=== PATIENT | female | born 1975 | race Caucasian/White ===

== ENCOUNTER 2016-08-27 14:15 | Observation (INO) | payer OTHER ==
[2016-08-27] MEDS ORDERED: Zofran 4 MG/2 ML VIAL IV PRN (16:44)
[2016-08-27] MEDS ORDERED: MORPHINE SULFATE 2 MG INJ IV PRN (16:44)
[2016-08-27 16:56] LABS: BASOPHIL % 0.2 % (0.0-0.4); Granulocytes % 53.7 % (36.0-66.0); Lymphocytes % 36.3 % (24.0-44.0); Mean Cell Volume 96.2 fl (78-100); Mean Corpuscular Hemoglobin 32.3 pg (26-32); Mean Platelet Volume 10.8 fl (6-9.5); Monocytes % 7.8 % (0.0-12.0); Platelet Count 242 K/mm3 (150-450); Red Blood Count 4.43 M/mm3 (4.1-5.4); Red Cell Distribution Width 12.6 % (11.5-14.0); White Blood Count 5.9 K/mm3 (4.0-10.5)
[2016-08-27 17:31] LABS: ALBUMIN 3.6 g/dL (3.4-5.0); ALKALINE PHOSPHATASE 83 U/L (46-116); ANION GAP 13.4 MEQ/L (5-15); BILIRUBIN,TOTAL 0.3 mg/dL (0.2-1.0); BLOOD UREA NITROGEN 11 mg/dL (9-20); CHLORIDE 106 mEq/L (98-107); Carbon Dioxide 27.9 mEq/L (21-32); Glucose 99 MG/DL (70-110); LIPASE 108 U/L (73-393); Potassium 3.4 mEq/L (3.5-5.1); SGOT/AST 17 U/L (15-37); SGPT/ALT 23 U/L (12-78); SODIUM 144 mEq/L (136-145); Total Protein 6.8 gm/dL (6.4-8.2)
[2016-08-27] MEDS: Sodium Chloride 0.9% 1000 ML 1,000 ML IV SCH (18:22)
[2016-08-28] MEDS: Sodium Chloride 0.9% 1000 ML 1,000 ML IV SCH (05:09)
[2016-08-28 05:46] LABS: COMPLETE URINE MICROSCOPIC? NO; Collection Type CLEAN CATCH
--- NOTE | 2016-08-28 08:36 | XRAY ---
Indication: Severe right lower quadrant pain. Multiple contiguous axial images obtained through the abdomen and pelvis without contrast as ordered. Comparison: None Lung bases are clear. Heart is not enlarged. There has been previous gastric bypass surgery. Noncontrasted stomach and bowel loops appear nonobstructed. Mild scattered colonic fecal debris throughout. Normal air-filled appendix. No free fluid/air. A few calcified splenic granulomas and tiny solitary calcified uterine fibroid. Remaining liver, gallbladder, pancreas, spleen, adrenal glands, kidneys, ureters, bladder, uterus, and aorta appear unremarkable for noncontrast exam. Osseous structures intact. Impression: 1. Fecal stasis without obstruction. 2. No acute intra-abdominal/pelvic abnormalities on this noncontrast exam. 3. Incidental tiny calcified uterine fibroid and calcified splenic granulomas. CT DI 23.05
[2016-08-28] MEDS ORDERED: MULTIVITAMIN PO SCH (10:00)
[2016-08-28] MEDS ORDERED: FERROUS SULFATE DRIED 65 MG PO SCH (10:00)
[2016-08-28] MEDS ORDERED: Vitamin B-12 500 MCG PO SCH (10:00)
[2016-08-28] MEDS ORDERED: THERAGRAN MULTIVITAMIN PO SCH (10:00)
[2016-08-28] MEDS ORDERED: FEOSOL 325 MG PO SCH (10:00)
[2016-08-28] MEDS ORDERED: CYANOCOBALAMIN PO SCH (10:00)
[2016-08-28 12:13] VITALS: BP 93/40; PULSE 63; O2SAT 98
--- NOTE | 2016-08-29 07:47 | CONS ---
CONSULT DATE: 08/28/[address] Forde earlier this patient is seen on Dr. Mauricio's call today. HISTORY: The patient is a 40 year-old female came in basically had some right sided abdominal aches and pains recently. She then had CT scan that was read as no acute changes, had calcified uterine fibroid, calcified splenic granuloma, some fecal stasis but no acute intra-abdominal pathology noted. She denies any nausea or vomiting today. She is tolerating liquids without difficulty. She is hungry and wanting to eat regular food. She has had history of bariatric surgery four years ago. She still has her gallbladder. PAST MEDICAL HISTORY: Pertinent for admission assessment. PAST SURGICAL HISTORY: Includes right ovarian cyst and ovary removed before. She had bariatric surgery. She had right axillary and neck area lymph nodes excised in the past. MEDICATIONS: As noted per the MAR. ALLERGIES: NKDA. SOCIAL HISTORY: No alcohol abuse. LAB DATA AND TESTS: Work ups included liver function test normal amylase and lipase were also okay. White blood cell count 5.9, hemoglobin 14.3, PLT 242,000. Lactic acid 0.9. HCG is negative. REVIEW OF SYSTEMS: Ten systems reviewed negative or noncontributory as noted above and per admission assessment. No chest pain or palpitations. She is basically having 1 out of 10 discomfort now much improved from admission. She is tolerating liquid diet without difficulty and wanting to eat regular food. She is much better and wants to go home at this time. PHYSICAL EXAMINATION: GENERAL: No acute distress. HEENT: Sclera nonicteric. NECK: No JVD. CHEST: Equal excursion, nonlabored breathing. CVS: Regular rate and rhythm. ABDOMEN: Soft. No peritoneal signs. There is minimal tenderness right abdomen much improved from her significant pain when she came in. EXTREMITIES: No significant edema. NEURO: Alert, moving extremities grossly symmetrically. No gross motor deficits noted. IMPRESSION: Right side abdominal pain unclear etiology. It could be biliary colic, gastritis, enteritis or other etiology. She is much improved. Ulcer could be in the differential as well as pain control for that. Otherwise much improved. She is tolerating p.o. Her pain is only 1 out of 10 and very minimal. The patient wants to eat more and go home. I do not feel she needs any emergent surgical intervention at this time. Apparently according to the nursing staff as her CT is negative she does have a HIDA scan that was scheduled as an outpatient. If that is negative, might need to consider either ultrasound to rule out noncalcified gallstones otherwise consider upper and lower endoscopy for further evaluation for further work up. Either way no emergent surgery necessary. She has an outpatient HIDA scan scheduled. I feel she can be released. She is tolerating p.o. and her pain has virtually resolved. Follow up in the office either with myself or Dr. Forde once the results of other studies come in.
--- NOTE | 2016-08-29 10:40 | DS ---
DISCHARGE DIAGNOSES: 1) ABDOMINAL PAIN RIGHT UPPER QUADRANT, IMPROVED. 2) ABDOMINAL PAIN RIGHT LOWER QUADRANT, RESOLVED. 3) HISTORY OF GASTRIC BYPASS. HOSPITAL COURSE: Sofiya Galan is a 40 year-old woman with past medical history of obstructive sleep apnea, status post gastric bypass in 2012. She was seen by Dr. Gonzalez for office visit yesterday and had complained of right upper abdominal pain and right lower abdominal pain. Please refer to his history and physical for details. She was admitted from office for further work up and management. Lab work up showed negative UA. CMP was essentially unremarkable except potassium of 3.4, lipase within normal limits. CBC was unremarkable. Lactic acid within normal limits. Serum HCG was negative. She was placed on treatment with IV fluids, PRN analgesics, PRN antiemetic. She underwent CT scan of abdomen and pelvis which showed fecal stasis without obstruction, no acute intra-abdominal/pelvic abnormality, incidental tiny calcified uterine fibroid and calcified splenic granulomas. After admission her right lower quadrant pain had resolved and also right upper quadrant pain improved. Earlier today the patient's nurse contacted me regarding starting the patient on diet since her pain had resolved. The patient was placed on clear liquid diet which she tolerated well. At the time of this evaluation she is alert, awake, and comfortable. Denies any right lower abdominal pain. Occasionally has minimal right upper quadrant pain however that has improved to a great extent from yesterday. Denies any nausea or vomiting. Denies new complaints. She has been able to ambulate overall feeling well and is wishing to go home. Appears comfortable. PHYSICAL EXAMINATION: VITAL SIGNS: Blood pressure 93/40, heart rate 63, respiratory rate 18, temperature 98.6F. Oxygen saturation 98%. HEENT: No pallor or icterus is noted. NECK: No JVD is present. CVS: S1, S2 present. RESPIRATORY: Breath sounds are bilaterally diminished and clear to auscultation. ABDOMEN: Obese, soft, minimal right upper quadrant tenderness is present. No guarding or rigidity present. NEURO: She is alert, oriented x3. EXTREMITIES: No edema on bilateral lower extremities. LABORATORY DATA AND TESTS: Labs were noted. CT scan of abdomen and pelvis as noted above. Medications were reviewed. ASSESSMENT: As outlined in discharge diagnoses. PLAN: The patient was admitted with right upper and right lower quadrant pain. She underwent work up and treatment as noted. She has improved clinically, remains hemodynamically stable. Her symptoms of right lower quadrant pain have resolved and right upper quadrant pain has improved to a great extent. She is overall feeling well, tolerating clear liquid diet so far. She is wishing to go home. Surgical consultation has been requested and is awaited. In view of the patient's symptoms, I have requested the patient to have HIDA scan that cannot be performed today and will be only available tomorrow morning. The patient was advised to follow up with that as outpatient as scheduled. I advised the patient to drink ample p.o. fluids and eat soft bland diet. I advised her to avoid any greasy foods. Compliant with diet and medications was stressed. I have advised her to return to the [facility] if any new signs and symptoms or reappearance of previous signs and symptoms are noted. Also the patient has been advised to follow up in our office in one week. The patient's clinical condition, work-up results and plan of management including plan after discharge as noted, were discussed with the patient. She seems to be in understanding and agreement. Please refer to discharge medication list from 08/28/2016 for details of medications on discharge.
== END 2016-08-28 16:25 | disposition home or self-care (01) ==
LOC: MED SURG 14:15
PROVIDERS: ADMIT General Practice; ATTEND General Practice
DX: R10.11 Right upper quadrant pain (principal); R10.31 Right lower quadrant pain; Z98.84 Bariatric surgery status
CPT/HCPCS: 36415; 74176; 80053; 81002; 82150; 83605; 83690; 84703; 85025; G0378; J2270; J2405

== ENCOUNTER 2016-08-31 17:58 | Observation (INO) | payer OTHER ==
[~2016-08-31 17:58] MED LIST: DILAUDID 2 MG INJECTION IV ONE; DIPRIVAN 200 MG/20 ML IV ONE; Decadron 4 MG INJ IV ONE; Quelicin Fliptop 200 MG/10 ML IJ ONE; SUBLIMAZE 100 MCG/2 ML IV ONE; TORAdol 30 mg Injection IJ ONE; Zemuron 100 MG/10 ML IJ ONE; Zofran 4 MG/2 ML VIAL IV ONE
--- NOTE | 2016-08-31 18:22 | ERPHSYRPT ---
- History of Present Illness Time Seen by Provider: 08/31/16 18:15 Historian: patient Exam Limitations: no limitations Physician History: The patient is a 40-year-old female with her complaining of right upper quadrant abdominal pain that radiates through to her back that began earlier this morning. She has had similar abdominal pain recently. She has been evaluated for this and it has been determined that her gallbladder is enlarged with only about 19% efficiency by HIDA scan. She was admitted 4 days ago for the same pain. She is scheduled to have her gallbladder removed in 2 weeks. Her local doctor told her to be seen in the emergency room if the pain came back this weekend. Her past medical history is significant for a bariatric surgery. Timing/Duration: today Activities at Onset: none Quality: aching Abdominal Pain Onset Location: RUQ Pain Radiation: back Severity of Pain-Max: moderate Severity of Pain-Current: moderate Modifying Factors: Improves With: nothing Associated Symptoms: nausea Previous symptoms: same symptoms as today Allergies/Adverse Reactions: No Known Drug Allergies Allergy (Verified 08/31/16 18:13) Home Medications: Cyanocobalamin (Vitamin B-12) [B-12] 15,000 mcg PO DAILY 08/27/16 [History] Ferrous Sulfate, Dried [Iron] 65 mg PO DAILY 08/27/16 [History] Multivitamin [Flintstones] 3 each PO DAILY 08/27/16 [History] - Review of Systems Constitutional: No Fever, No Chills Eyes: No Symptoms Ears, Nose, & Throat: No Symptoms Respiratory: No Cough, No Dyspnea Cardiac: No Chest Pain, No Edema, No Syncope Abdominal/Gastrointestinal: Abdominal Pain, Nausea Genitourinary Symptoms: No Dysuria Musculoskeletal: No Back Pain, No Neck Pain Skin: No Rash Neurological: No Dizziness, No Focal Weakness, No Sensory Changes Psychological: No Symptoms Endocrine: No Symptoms Hematologic/Lymphatic: No Symptoms Immunological/Allergic: No Symptoms All Other Systems: Reviewed and Negative - Past Medical History Pertinent Past Medical History: Yes Neurological History: No Pertinent History ENT History: No Pertinent History Cardiac History: Other Respiratory History: No Pertinent History Endocrine Medical History: Other Musculoskeletal History: No Pertinent History GI Medical History: Other History: No Pertinent History Psycho-Social History: No Pertinent History Female Reproductive Disorders: No Pertinent History Other Medical History: prior to bariatric surgery pt was diabetic type II. no longer deals with any diabetic signs or symptoms. HX: mitral valve prolapse, bariatric surgery - Past Surgical History Past Surgical History: Yes Neuro Surgical History: No Pertinent History Cardiac: Cardiac Catheterization, Other Respiratory: No Pertinent History Gastrointestinal: Other Genitourinary: No Pertinent History Musculoskeletal: No Pertinent History Female Surgical History: Other Other Surgical History: bariatric surgery, heart cath for mitral valve prolaspe , ovarian cyst surgery,lymphnode removed from left side of the neck - Social History Smoking Status: Never smoker Exposure to second hand smoke: No Drug Use: none - Nursing Vital Signs Nursing Vital Signs: Initial Vital Signs Temperature 98.5 F Temperature Source Oral Pulse Rate 56 Respiratory Rate 16 Blood Pressure [Right Arm] 116/56 Pain Intensity 2 - Physical Exam General Appearance: mild distress Eye Exam: PERRL/EOMI, eyes nml inspection Ears, Nose, Throat Exam: normal ENT inspection, pharynx normal, moist mucous membranes Neck Exam: normal inspection, non-tender, supple, full range of motion Respiratory Exam: normal breath sounds, lungs clear, No respiratory distress Cardiovascular Exam: regular rate/rhythm, normal heart sounds Gastrointestinal/Abdomen Exam: tenderness (RUQ), guarding Pelvic Exam: not done Rectal Exam: not done Back Exam: normal inspection, normal range of motion, No CVA tenderness, No vertebral tenderness Extremity Exam: normal inspection, normal range of motion, pelvis stable Neurologic Exam: alert, oriented x 3, cooperative, normal mood/affect, nml cerebellar function, sensation nml, No motor deficits Skin Exam: normal color, warm, dry SpO2 Interpretation: normal - CT Exams Abdomen/Pelvis CT Interpretation: Tele-radiologist Report, Normal Appendix, No appendicitis, Other (New 3.5 cm R ovarian cyst. Tiny cul de sac fluid. Nl appy. Comp CT ) Ordered Tests: Active Orders 24 hr Category Date Time Status IV Insertion STAT Care 08/31/16 18:19 Active ABDOMEN AND PELVIS W/0 CONTRAS [CT] Stat Exams 08/31/16 18:26 Taken CBC W DIFF Stat Lab 08/31/16 18:15 Completed CMP Stat Lab 08/31/16 18:15 Completed HCG QUALITATIVE,SERUM Stat Lab 08/31/16 18:15 Completed LIPASE Stat Lab 08/31/16 18:15 Completed Lactic Acid Urgent Lab 08/31/16 18:55 Completed UA W/ MICROSCOPIC Stat Lab 08/31/16 18:50 Completed Medication Summary Discontinued Medications Generic Name Dose Route Start Last Admin Trade Name Jc PRN Reason Stop Dose Admin Hydromorphone HCl 0.5 mg 08/31/16 18:25 08/31/16 18:35 Hydromorphone 1 Mg/Ml Ampule IV 08/31/16 18:26 0.5 mg STAT ONE Administration Hydromorphone HCl Confirm 08/31/16 18:32 Hydromorphone 1 Mg/Ml Ampule Administered 08/31/16 18:33 Dose 1 mg .ROUTE .STK-MED ONE Sodium Chloride 500 mls @ 999 mls/hr 08/31/16 18:25 08/31/16 18:35 Sodium Chloride 0.9% 1000 Ml IV 08/31/16 18:55 999 mls/hr .Q31M STA Administration Sodium Chloride Confirm 08/31/16 18:32 Sodium Chloride 0.9% 1000 Ml Administered 08/31/16 18:33 Dose 1,000 mls @ ud .ROUTE .STK-MED ONE Ondansetron HCl 4 mg 08/31/16 18:25 08/31/16 18:36 Zofran 4 Mg/2 Ml Vial IV 08/31/16 18:26 4 mg STAT ONE Administration Ondansetron HCl Confirm 08/31/16 18:32 Zofran 4 Mg/2 Ml Vial Administered 08/31/16 18:33 Dose 4 mg .ROUTE .STK-MED ONE Lab/Rad Data: Laboratory Result Diagrams 08/31/16 18:15 08/31/16 18:15 Laboratory Results 08/31/16 08/31/16 08/31/16 Range/Units 18:55 18:50 18:15 WBC (4.0-10.5) K/mm3 RBC (4.1-5.4) M/mm3 Hgb (12.0-16.0) gm/dl Hct (35-47) % MCV (78-100) fl MCH (26-32) pg MCHC (32-36) g/dl RDW (11.5-14.0) % Plt Count (150-450) K/mm3 MPV (6-9.5) fl Gran % (36.0-66.0) % Lymphocytes % (24.0-44.0) % Monocytes % (0.0-12.0) % Eosinophils % (0.00-5.0) % Basophils % (0.0-0.4) % Basophils # (0-0.4) Sodium (136-145) mEq/L Potassium (3.5-5.1) mEq/L Chloride (98-107) mEq/L Carbon Dioxide (21-32) mEq/L Anion Gap (5-15) MEQ/L BUN (9-20) mg/dL Creatinine (0.55-1.30) mg/dl Estimated GFR ML/MIN Glucose (70-110) MG/DL Lactic Acid 1.5 (0.4-2.0) Calcium (8.5-10.1) mg/dL Total Bilirubin (0.2-1.0) mg/dL AST (15-37) U/L ALT (12-78) U/L Alkaline Phosphatase (46-116) U/L Serum Total Protein (6.4-8.2) gm/dL Albumin (3.4-5.0) g/dL Lipase (73-393) U/L Serum , Qual NEGATIVE (Negative) Ur Collection Type CLEAN CATCH Urine Color YELLOW (YELLOW) Urine Appearance SLIGHTLY CLOUDY (CLEAR) Urine pH 5.0 (5-6) Ur Specific [place] 1.025 (1.005-1.025) Urine Protein NEGATIVE (Negative) Urine Glucose (UA) NEGATIVE (NEGATIVE) mg/dL Urine Ketones TRACE (NEGATIVE) Urine Nitrite NEGATIVE (NEGATIVE) Urine Bilirubin NEGATIVE (NEGATIVE) Urine Urobilinogen 0.2 (0-1) mg/dL Urine WBC (Auto) TRACE (NEGATIVE) Urine RBC (Auto) NEGATIVE (0-5) Claude/ul Urine Microscopic WBC 0-2 (0-5) /HPF Ur Epithelial Cells FEW (FEW) /HPF Urine Bacteria RARE (NEGATIVE) /HPF Specimen Received 08/31/16:1855 08/31/16 08/31/16 Range/Units 18:15 18:15 WBC 7.7 (4.0-10.5) K/mm3 RBC 4.43 (4.1-5.4) M/mm3 Hgb 14.3 (12.0-16.0) gm/dl Hct 42.4 (35-47) % MCV 95.7 (78-100) fl MCH 32.3 H (26-32) pg MCHC 33.7 (32-36) g/dl RDW 12.6 (11.5-14.0) % Plt Count 238 (150-450) K/mm3 MPV 10.6 H (6-9.5) fl Gran % 54.4 (36.0-66.0) % Lymphocytes % 33.6 (24.0-44.0) % Monocytes % 9.1 (0.0-12.0) % Eosinophils % 2.6 (0.00-5.0) % Basophils % 0.3 (0.0-0.4) % Basophils # 0.02 (0-0.4) Sodium 145 (136-145) mEq/L Potassium 3.5 (3.5-5.1) mEq/L Chloride 111 H (98-107) mEq/L Carbon Dioxide 25.3 (21-32) mEq/L Anion Gap 12.5 (5-15) MEQ/L BUN 12 (9-20) mg/dL Creatinine 0.88 (0.55-1.30) mg/dl Estimated GFR > 60 ML/MIN Glucose 89 (70-110) MG/DL Lactic Acid (0.4-2.0) Calcium 8.0 L (8.5-10.1) mg/dL Total Bilirubin 0.2 (0.2-1.0) mg/dL AST 14 L (15-37) U/L ALT 15 (12-78) U/L Alkaline Phosphatase 90 (46-116) U/L Serum Total Protein 6.6 (6.4-8.2) gm/dL Albumin 3.6 (3.4-5.0) g/dL Lipase 133 (73-393) U/L Serum , Qual (Negative) Ur Collection Type Urine Color (YELLOW) Urine Appearance (CLEAR) Urine pH (5-6) Ur Specific [place] (1.005-1.025) Urine Protein (Negative) Urine Glucose (UA) (NEGATIVE) mg/dL Urine Ketones (NEGATIVE) Urine Nitrite (NEGATIVE) Urine Bilirubin (NEGATIVE) Urine Urobilinogen (0-1) mg/dL Urine WBC (Auto) (NEGATIVE) Urine RBC (Auto) (0-5) Claude/ul Urine Microscopic WBC (0-5) /HPF Ur Epithelial Cells (FEW) /HPF Urine Bacteria (NEGATIVE) /HPF Specimen Received - Progress Progress: improved, pain not gone completely Progress Note: 08/31/16 20:05 Discussed pt at 19:[address] Gonzalez who accepts pt as observation overnight. Discussed pt at 20:[address] Vicky Forde who will see pt in the morning. Discussed with : Carlos Counseled pt/family regarding: lab results, diagnosis, need for follow-up, rad results - Departure Time of Disposition: 19:43 Departure Disposition: Observation (per Dr Gonzalez) Clinical Impression: Abdominal pain, Ovarian cyst Condition: Stable Critical Care Time: No
[2016-08-31] MEDS ORDERED: Zofran 4 MG/2 ML VIAL IV ONE (18:25)
[2016-08-31] MEDS ORDERED: Hydromorphone 1 mg/ml Ampule IV ONE (18:25)
[2016-08-31] MEDS ORDERED: Zofran 4 MG/2 ML VIAL ONE (18:32)
[2016-08-31] MEDS ORDERED: Hydromorphone 1 mg/ml Ampule ONE (18:32)
[2016-08-31] MEDS ORDERED: Sodium Chloride 0.9% 1000 ML 1,000 ML ONE (18:32)
[2016-08-31 18:33] LABS: BASOPHIL % 0.3 % (0.0-0.4); Eosinophil % 2.6 % (0.00-5.0); Granulocytes % 54.4 % (36.0-66.0); Lymphocytes % 33.6 % (24.0-44.0); Mean Cell Volume 95.7 fl (78-100); Mean Corpuscular Hemoglobin 32.3 pg (26-32); Mean Platelet Volume 10.6 fl (6-9.5); Monocytes % 9.1 % (0.0-12.0); Platelet Count 238 K/mm3 (150-450); Red Blood Count 4.43 M/mm3 (4.1-5.4); Red Cell Distribution Width 12.6 % (11.5-14.0); White Blood Count 7.7 K/mm3 (4.0-10.5)
[2016-08-31 18:51] LABS: ALBUMIN 3.6 g/dL (3.4-5.0); ALKALINE PHOSPHATASE 90 U/L (46-116); ANION GAP 12.5 MEQ/L (5-15); BILIRUBIN,TOTAL 0.2 mg/dL (0.2-1.0); BLOOD UREA NITROGEN 12 mg/dL (9-20); CHLORIDE 111 mEq/L (98-107); Carbon Dioxide 25.3 mEq/L (21-32); Glucose 89 MG/DL (70-110); LIPASE 133 U/L (73-393); Potassium 3.5 mEq/L (3.5-5.1); SGOT/AST 14 U/L (15-37); SGPT/ALT 15 U/L (12-78); SODIUM 145 mEq/L (136-145); Total Protein 6.6 gm/dL (6.4-8.2)
[2016-08-31 19:09] LABS: Collection Type CLEAN CATCH
[2016-08-31 19:11] LABS: Bacteria RARE /HPF (NEGATIVE); COMPLETE URINE MICROSCOPIC? YES; Epithelial Cells FEW /HPF (FEW); WBC 0-2 /HPF (0-5)
[2016-08-31] MEDS ORDERED: TYLENOL 325 MG PO PRN (20:46)
[2016-08-31] MEDS: Sodium Chloride 0.9% 1000 ML 1,000 ML IV SCH (21:24)
[2016-08-31] MEDS: DILAUDID 2 MG INJECTION IV PRN (21:31)
--- NOTE | 2016-08-31 22:27 | XRAY ---
Indication: Right lower quadrant pain. Multiple contiguous axial images obtained through the abdomen and pelvis without contrast as ordered. Comparison: August 27, 2016. Lung bases remain clear. Heart is not enlarged. Again noted previous gastric bypass surgery. Noncontrasted stomach and bowel loops appear nonobstructed. Again normal appendix. New 3.5 cm right ovary cyst and tiny cul-de-sac fluid. Stable calcified splenic granulomas and solitary calcified uterine fibroid. Remaining liver, gallbladder, pancreas, spleen, adrenal glands, kidneys, ureters, bladder, and aorta appear unremarkable for noncontrast exam. Impression: New 3.5 cm right ovary cyst and cul-de-sac fluid. Stable calcified splenic granulomas and tiny calcified uterine fibroid. CTDI 23.39
[2016-09-01] MEDS: DILAUDID 2 MG INJECTION IV PRN ×4 (02:19→22:09)
[2016-09-01 05:52] LABS: BASOPHIL % 0.4 % (0.0-0.4); Eosinophil % 2.9 % (0.00-5.0); Granulocytes % 45.8 % (36.0-66.0); Lymphocytes % 43.1 % (24.0-44.0); Mean Cell Volume 97.9 fl (78-100); Mean Platelet Volume 10.6 fl (6-9.5); Monocytes % 7.8 % (0.0-12.0); Platelet Count 186 K/mm3 (150-450); Red Blood Count 3.77 M/mm3 (4.1-5.4); Red Cell Distribution Width 12.6 % (11.5-14.0); White Blood Count 5.6 K/mm3 (4.0-10.5)
[2016-09-01 06:03] LABS: Mean Corpuscular Hemoglobin 32.3 pg (26-32)
[2016-09-01 06:14] LABS: ANION GAP 11.9 MEQ/L (5-15); BLOOD UREA NITROGEN 9 mg/dL (9-20); CHLORIDE 115 mEq/L (98-107); Carbon Dioxide 24.4 mEq/L (21-32); Glucose 89 MG/DL (70-110); Potassium 4.4 mEq/L (3.5-5.1); SODIUM 147 mEq/L (136-145)
[2016-09-01] MEDS: Zofran 4 MG/2 ML VIAL IV PRN ×2 (06:16→16:31)
[2016-09-01] MEDS: Sodium Chloride 0.9% 1000 ML 1,000 ML IV SCH (08:01)
--- NOTE | 2016-09-01 08:20 | PCM.HP ---
History of Present Illness - Chief Complaint Chief Complaint: cholecystitis History of Present Illness: The patient is a 40-year-old female with her complaining of right upper quadrant abdominal pain that radiates through to her back that began earlier this morning. She has had similar abdominal pain recently. She has been evaluated for this and it has been determined that her gallbladder is enlarged with only about 19% efficiency by HIDA scan. She was admitted 4 days ago for the same pain. She is scheduled to have her gallbladder removed in 2 weeks. Her local doctor told her to be seen in the emergency room if the pain came back this weekend. Her past medical history is significant for a bariatric surgery. - Review of Systems Constitutional: No Fever, No Chills Eyes: No Symptoms Ears, Nose, & Throat: No Symptoms Respiratory: No Cough, No Short Of Breath Cardiac: No Chest Pain, No Edema, No Syncope Abdominal/Gastrointestinal: Abdominal Pain (right upper quadrant), No Nausea, No Vomiting, No Diarrhea Genitourinary Symptoms: No Dysuria Musculoskeletal: No Back Pain, No Neck Pain Skin: No Rash Neurological: No Dizziness, No Focal Weakness, No Sensory Changes Psychological: No Symptoms Endocrine: No Symptoms Hematologic/Lymphatic: No Symptoms Immunological/Allergic: No Symptoms Medications & Allergies Home Medications: Home Medication List Cyanocobalamin (Vitamin B-12) [B-12] 15,000 mcg PO DAILY 08/27/16 [History Confirmed 08/31/16] Ferrous Sulfate, Dried [Iron] 65 mg PO DAILY 08/27/16 [History Confirmed ] Multivitamin [Flintstones] 3 each PO DAILY 08/27/16 [History Confirmed 08/31/16] Allergies/Adverse Reactions: Allergies Allergy/AdvReac Type Severity Reaction Status Date / Time No Known Drug Allergies Allergy Verified 08/31/16 18:13 - Past Medical History Past Medical History: Yes Neurological History: No Pertinent History ENT History: No Pertinent History Cardiac History: Other Respiratory History: No Pertinent History Endocrine Medical History: Other Musculoskelatal History: No Pertinent History GI Medical History: Other History: No Pertinent History Pyscho-Social History: No Pertinent History Reproductive Disorders: No Pertinent History Comment: prior to bariatric surgery pt was diabetic type II. no longer deals with any diabetic signs or symptoms. HX: mitral valve prolapse, bariatric surgery - Female History Hx Last Menstrual Period: 08/14/16 Are you now?: No - Past Surgical History Past Surgical History: Yes Neuro Surgical History: No Pertinent History Cardiac History: Cardiac Catheterization, Other Respiratory Surgery: No Pertinent History GI Surgical History: Other Genitourinary Surgical Hx: No Pertinent History Musculskeletal Surgical Hx: No Pertinent History Female Surgical History: Other Other Surgical History: bariatric surgery, heart cath for mitral valve prolaspe , ovarian cyst surgery,lymphnode removed from left side of the neck, 5 lymph nodes removed from Right arm pit - Social History Smoking Status: Never smoker Exposure to second hand smoke: No Alcohol: None Drug Use: none - Physical Exam Vital Signs: Vital Signs - 24 hr Temp Pulse Resp BP Pulse Ox 09/01/16 08:00 98.5 F 48 L 17 89/51 94 L 09/01/16 04:00 98.0 F 52 L 15 99/58 96 09/01/16 00:00 98.2 F 46 L 16 92/48 97 08/31/16 22:50 98.3 F 55 L 16 114/53 100 08/31/16 20:03 64 16 110/54 99 08/31/16 19:22 56 L 16 116/56 99 08/31/16 18:01 98.5 F 63 16 116/54 100 General Appearance: no apparent distress, alert Neurologic Exam: alert, oriented x 3, cooperative, normal mood/affect, nml cerebellar function, nml station & gait, sensation nml, No motor deficits Eye Exam: PERRL/EOMI, eyes nml inspection Ears, Nose, Throat Exam: normal ENT inspection, TMs normal, pharynx normal, moist mucous membranes Neck Exam: normal inspection, non-tender, supple, full range of motion Respiratory Exam: normal breath sounds, lungs clear, No respiratory distress Cardiovascular Exam: regular rate/rhythm, normal heart sounds, normal peripheral pulses Gastrointestinal/Abdomen Exam: soft, normal bowel sounds, tenderness (right upper quadrant), No distention, No mass, No guarding Back Exam: normal inspection, normal range of motion, No CVA tenderness, No vertebral tenderness Extremity Exam: normal inspection, normal range of motion, pelvis stable Skin Exam: normal color, warm, dry, No rash Lymphatic Exam: No adenopathy Results - Labs Lab/Micro Results: Lab Results-Last 24 Hours 09/01/16 09/01/16 Range/Units 05:25 05:30 WBC 5.6 (4.0-10.5) K/mm3 RBC 3.77 L (4.1-5.4) M/mm3 Hgb 12.2 (12.0-16.0) gm/dl Hct 36.9 (35-47) % MCV 97.9 (78-100) fl MCH 32.3 H (26-32) pg MCHC 33.1 (32-36) g/dl RDW 12.6 (11.5-14.0) % Plt Count 186 (150-450) K/mm3 MPV 10.6 H (6-9.5) fl Gran % 45.8 (36.0-66.0) % Lymphocytes % 43.1 (24.0-44.0) % Monocytes % 7.8 (0.0-12.0) % Eosinophils % 2.9 (0.00-5.0) % Basophils % 0.4 (0.0-0.4) % Basophils # 0.02 (0-0.4) Sodium 147 H (136-145) mEq/L Potassium 4.4 (3.5-5.1) mEq/L Chloride 115 H (98-107) mEq/L Carbon Dioxide 24.4 (21-32) mEq/L Anion Gap 11.9 (5-15) MEQ/L BUN 9 (9-20) mg/dL Creatinine 0.79 (0.55-1.30) mg/dl Estimated GFR > 60 ML/MIN Glucose 89 (70-110) MG/DL Calcium 7.6 L (8.5-10.1) mg/dL Assessment/Plan (1) Acalculous cholecystitis Current Visit: Yes Status: Acute Assessment & Plan: admit patient . surgery on consult. patient is stable for general anesthesia Code(s): K81.9 - CHOLECYSTITIS, UNSPECIFIED (2) Abdominal pain Current Visit: Yes Status: Acute Qualifiers: Abdominal location: right upper quadrant Qualified Code(s): R10.11 - Right upper quadrant pain Code(s): R10.9 - UNSPECIFIED ABDOMINAL PAIN (3) Ovarian cyst Current Visit: Yes Status: Acute Qualifiers: Laterality: right Qualified Code(s): N83.201 - Unspecified ovarian cyst, right side Code(s): N83.209 - UNSPECIFIED OVARIAN CYST, UNSPECIFIED SIDE
[2016-09-01] MEDS ORDERED: MEFOXIN 2 GM PREMIX** 50 ML IV SCH (10:00)
[2016-09-01] MEDS ORDERED: Lactated Ringers 1,000 ML IV SCH (10:00)
[2016-09-01] MEDS ORDERED: CYANOCOBALAMIN PO SCH (10:00)
[2016-09-01] MEDS ORDERED: FERROUS SULFATE DRIED 65 MG PO SCH (10:00)
[2016-09-01] MEDS ORDERED: MULTIVITAMIN PO SCH (10:00)
[2016-09-01] MEDS: THERAGRAN MULTIVITAMIN PO SCH (10:23)
[2016-09-01] MEDS: FEOSOL 325 MG PO SCH (10:23)
[2016-09-01] MEDS ORDERED: MEDICATION INTERVENTION MC PRN (10:24)
[2016-09-01] MEDS ORDERED: Pepcid 20 MG VIAL IV SCH (12:00)
[2016-09-01] MEDS ORDERED: BICITRA 30 ML CUP PO SCH (12:00)
[2016-09-01] MEDS ORDERED: Sensorcaine 0.25% 10 ML ONE (12:46)
[2016-09-01] MEDS ORDERED: Lactated Ringers 1,000 ML IV ONE (12:47)
[2016-09-01] MEDS ORDERED: DILAUDID 2 MG INJECTION ONE ×2 (15:02→22:01)
[2016-09-01] MEDS ORDERED: MORPHINE SULFATE 2 MG INJ IV PRN (15:43)
[2016-09-01] MEDS ORDERED: MORPHINE SULFATE 4 MG INJ IV PRN (15:44)
[2016-09-01] MEDS ORDERED: FEVERALL 650 MG RC PRN (15:45)
[2016-09-01] MEDS: Dextrose 5% -0.45 NaCl 1000 ML 1,000 ML IV SCH (16:15)
[2016-09-01] MEDS: MEFOXIN 1 Gm/ D5W 50 Ml** 50 ML IV SCH ×2 (17:51→23:55)
[2016-09-01] MEDS ORDERED: Phenergan 25 MG INJ IV PRN (18:01)
[2016-09-02] MEDS ORDERED: DILAUDID 2 MG INJECTION ONE ×2 (02:16→10:00)
[2016-09-02] MEDS: DILAUDID 2 MG INJECTION IV PRN ×2 (02:21→10:01)
[2016-09-02 05:38] LABS: Mean Cell Volume 97.3 fl (78-100); Mean Corpuscular Hemoglobin 32.4 pg (26-32); Mean Platelet Volume 10.4 fl (6-9.5); Platelet Count 217 K/mm3 (150-450); Red Blood Count 4.04 M/mm3 (4.1-5.4); Red Cell Distribution Width 12.4 % (11.5-14.0); White Blood Count 10.3 K/mm3 (4.0-10.5)
[2016-09-02] MEDS: MEFOXIN 1 Gm/ D5W 50 Ml** 50 ML IV SCH ×2 (05:54→11:28)
[2016-09-02] MEDS ORDERED: NORCO 5/325 MG PO PRN (06:00)
[2016-09-02] MEDS: Dextrose 5% -0.45 NaCl 1000 ML 1,000 ML IV SCH (06:22)
--- NOTE | 2016-09-02 08:39 | OP ---
SURGERY DATE: 09/01/16 SURGERY TIME: 1344 PREOPERATIVE DIAGNOSIS: 1. GALLBLADDER DYSKINESIA. 2. POSSIBLE OVARIAN CYST. POSTOPERATIVE DIAGNOSIS: 1. GALLBLADDER DYSKINESIA 2. NORMAL PELVISCOPY. PROCEDURE: 1. Laparoscopic cholecystectomy. 2. Pelviscopy. SURGEON: Charles Forde M.D. ANESTHESIA: General endotracheal tube. COMPLICATIONS: None. CONDITION: Stable. INDICATION: She is requiring removal of her gallbladder and evaluation of her pelvis. OPERATIVE PROCEDURE: She was taken to surgery. General anesthetic. Routine prep and drape. She had 1 previous procedure. The fascia was elevated upwards. Care and patience was taken entering with the Veress needle. Deliberately inserted. Opened to a pressure of -1. Insufflated to a pressure of 14. #5 trocar introduced. There was just a touch of serosanguinous fluid in the left gutter. Right gutter just a drip in the midline. A right lower quadrant port was placed first. Trendelenburg position. The uterus was normal. The tubes were normal. The ovaries were grossly normal. There was ovulation and normal functional cyst, but there was no large cyst and there was nothing that needed any opening, biopsy, or any attention at this time. The cul-de-sac was satisfactory. There was no endometriosis. The gallbladder was very distended and at the fundus, it was 80% intrahepatic. Three additional ports. Repositioning of the table. Attention headed upwards. The liver was normal. Cystic duct defined. Cystic artery defined. Both structures triply Ligaclipped and transected. Clips totally cross wall approximated. Gallbladder rolled out of gallbladder fossa. Gallbladder delivered through the umbilical port with minimal widening. The umbilical fascia was closed deliberately with the hole closure device. On reinspection, the abdomen was dry. CO2 was exsufflated. Skin closed with 4-0 Vicryl and Steri-strips. Patient tolerated the procedure satisfactory.
[2016-09-02] MEDS: FEOSOL 325 MG PO SCH (09:26)
[2016-09-02] MEDS: THERAGRAN MULTIVITAMIN PO SCH (09:27)
[2016-09-02] MEDS ORDERED: ENOXAPARIN SODIUM SQ SCH (10:00)
[2016-09-02 11:24] VITALS: BP 89/47; PULSE 52; O2SAT 99
--- NOTE | 2016-09-02 12:43 | PCM.DS ---
Discharge Summary Date of Admission: 08/31/16 20:27 Admitting Physician: EVARISTO LAZARO Primary Care Provider: TITO GRIFFITH Allergies Allergies No Known Drug Allergies Allergy (Verified 08/31/16 18:13) Hospital Summary - Hospital Course Hospital Course: Chief Complaint Diagnosis cholecystitis Allergies Allergy/AdvReac Type Severity Reaction Status Date / Time No Known Drug Allergies Allergy Verified 08/31/16 18:13 Vital Signs (Last 24 hours) Temp Pulse Resp BP Pulse Ox 09/02/16 11:00 99.2 F 52 L 18 89/47 99 09/02/16 08:00 18 09/02/16 07:20 98.6 F 47 L 18 89/44 100 09/02/16 07:04 98 09/02/16 05:00 98.1 F 50 L 16 91/49 98 09/02/16 00:49 98.1 F 44 L 16 106/55 98 09/01/16 21:22 54 L 18 96 09/01/16 19:15 98.2 F 58 L 16 120/56 96 09/01/16 18:15 97.9 F 53 L 16 118/65 100 09/01/16 17:15 98.6 F 54 L 18 110/58 96 09/01/16 16:43 98.6 F 52 L 18 121/57 96 09/01/16 16:13 98.7 F 55 L 18 118/58 95 09/01/16 15:54 97.7 F 61 20 127/58 100 09/01/16 15:39 98.3 F 64 18 132/66 97 Current Medications Generic Name Dose Route Start Last Admin Trade Name Freq PRN Reason Stop Dose Admin Acetaminophen 650 mg 08/31/16 20:46 Tylenol 325 Mg PO 09/30/16 20:45 Q4H PRN PRN PAIN AND/OR FEVER Acetaminophen 650 mg 09/01/16 15:45 Feverall 650 Mg RC 10/01/16 15:44 Q4H/PRN PRN TEMP >100 Acetaminophen/Hydrocodone Bitart 1 tab 09/02/16 06:00 [place] 5/325 Mg PO 09/07/16 05:59 Q4H PRN PRN PAIN Bisacodyl 5 mg 09/02/16 12:45 09/02/16 12:39 Dulcolax 5 Mg PO 09/02/16 12:46 5 mg NOW ONE Administration Enoxaparin Sodium 40 mg 09/02/16 10:00 09/02/16 09:26 Enoxaparin Sodium SQ 10/02/16 09:59 40 mg DAILY DEONTE Administration Ferrous Sulfate 325 mg 09/01/16 10:00 09/02/16 09:26 Feosol 325 Mg PO 10/01/16 09:59 325 mg DAILY DEONTE Administration Hydromorphone HCl 0.5 mg 08/31/16 20:46 09/02/16 10:01 Dilaudid 2 Mg Injection IV 09/05/16 20:45 0.5 mg Q4H PRN PRN Administration PAIN Dextrose/Sodium Chloride 1,000 mls @ 75 mls/hr 09/01/16 15:45 09/02/16 06:22 Dextrose 5% -0.45 Nacl 1000 Ml IV 10/01/16 15:44 75 mls/hr .[id number] DEONTE Administration Morphine Sulfate 0 mg 09/01/16 15:43 Morphine Sulfate 2 Mg Inj IV 09/06/16 15:42 Q1H PRN PRN Morphine Sulfate 0 mg 09/01/16 15:44 09/01/16 15:54 Morphine Sulfate 4 Mg Inj IV 09/06/16 15:43 4 mg Q1H PRN PRN Administration Multivitamins 1 tab 09/01/16 10:00 09/02/16 09:27 Theragran Multivitamin PO 10/01/16 09:59 1 tab DAILY DEONTE Administration Ondansetron HCl 4 mg 08/31/16 20:46 09/01/16 16:31 Zofran 4 Mg/2 Ml Vial IV 09/30/16 20:45 4 mg Q6H PRN PRN Administration NAUSEA/VOMITING Promethazine HCl 25 mg 09/01/16 18:01 09/01/16 22:11 Phenergan 25 Mg Inj IV 10/01/16 18:00 12.5 mg Q6H PRN PRN Administration NAUSEA/VOMITING Discontinued Medications Generic Name Dose Route Start Last Admin Trade Name Freq PRN Reason Stop Dose Admin Bupivacaine HCl Confirm 09/01/16 12:46 Sensorcaine 0.25% 10 Ml Administered 09/01/16 12:47 Dose 10 ml .ROUTE .STK-MED ONE Citric Acid/Sodium Citrate 30 ml 09/01/16 12:00 Bicitra 30 Ml Cup PO 09/01/16 16:00 1HRPRIOR DEONTE Famotidine 40 mg 09/01/16 12:00 09/01/16 12:37 Pepcid 20 Mg Vial IV 09/01/16 16:00 40 mg 1HRPRIOR DEONTE Administration Hydromorphone HCl 0.5 mg 08/31/16 18:25 08/31/16 18:35 Hydromorphone 1 Mg/Ml Ampule IV 08/31/16 18:26 0.5 mg STAT ONE Administration Hydromorphone HCl Confirm 08/31/16 18:32 Hydromorphone 1 Mg/Ml Ampule Administered 08/31/16 18:33 Dose 1 mg .ROUTE .STK-MED ONE Hydromorphone HCl Confirm 09/01/16 15:02 Dilaudid 2 Mg Injection Administered 09/01/16 15:03 Dose 2 mg .ROUTE .STK-MED ONE Hydromorphone HCl Confirm 09/01/16 22:01 Dilaudid 2 Mg Injection Administered 09/01/16 22:02 Dose 2 mg .ROUTE .STK-MED ONE Hydromorphone HCl Confirm 09/02/16 02:16 Dilaudid 2 Mg Injection Administered 09/02/16 02:17 Dose 2 mg .ROUTE .STK-MED ONE Hydromorphone HCl Confirm 09/02/16 10:00 Dilaudid 2 Mg Injection Administered 09/02/16 10:01 Dose 2 mg .ROUTE .STK-MED ONE Sodium Chloride 500 mls @ 999 mls/hr 08/31/16 18:25 08/31/16 18:35 Sodium Chloride 0.9% 1000 Ml IV 08/31/16 18:55 999 mls/hr .Q31M STA Administration Sodium Chloride Confirm 08/31/16 18:32 Sodium Chloride 0.9% 1000 Ml Administered 08/31/16 18:33 Dose 1,000 mls @ ud .ROUTE .STK-MED ONE Sodium Chloride 1,000 mls @ 100 mls/hr 08/31/16 20:46 09/01/16 08:01 Sodium Chloride 0.9% 1000 Ml IV 09/30/16 20:45 100 mls/hr .Q10H DEONTE Administration Cefoxitin Sodium 50 mls @ 100 mls/hr 09/01/16 10:00 09/01/16 10:25 Mefoxin 2 Gm Premix IV 09/01/16 15:00 100 mls/hr ONCALLTOOR DEONTE Administration Lactated Ringer's 1,000 mls @ 50 mls/hr 09/01/16 10:00 09/01/16 10:25 Lactated Ringers IV 09/02/16 05:59 50 mls/hr .Q20H DEONTE Administration Lactated Ringer's Confirm 09/01/16 12:47 Lactated Ringers Administered 09/01/16 12:48 Dose 1,000 mls @ ud IV .STK-MED ONE Cefoxitin Sodium 50 mls @ 100 mls/hr 09/01/16 18:00 09/02/16 11:28 Mefoxin 1 Gm/ D5w 50 Ml IV 09/02/16 12:29 100 mls/hr Q6HT DEONTE Administration Ondansetron HCl 4 mg 08/31/16 18:25 08/31/16 18:36 Zofran 4 Mg/2 Ml Vial IV 08/31/16 18:26 4 mg STAT ONE Administration Ondansetron HCl Confirm 08/31/16 18:32 Zofran 4 Mg/2 Ml Vial Administered 08/31/16 18:33 Dose 4 mg .ROUTE .STK-MED ONE Intake & Output (Last 24 hours) 08/31/16 09/01/16 09/02/16 09/03/16 11:59 11:59 11:59 11:59 Intake Total 761 1464 Output Total 300 600 Balance 461 864 Weight 97.84 kg 97.84 kg Laboratory Results (Last 24 hours) 09/02/16 05:20 WBC 10.3 RBC 4.04 L Hgb 13.1 Hct 39.3 MCV 97.3 MCH 32.4 H MCHC 33.3 RDW 12.4 Plt Count 217 MPV 10.4 H Orders (Last 24 hours) Category Date Time Status Turn [Turn,Cough and Deep Breathe] Q2H Activity 09/01/16 15:45 Active Intake [Intake and Output] Q12H Care 09/01/16 15:45 Active Miscellaneous Nursing Order ROUTINE Care 09/01/16 15:45 Active Miscellaneous Nursing Order ROUTINE Care 09/01/16 15:47 Active Miscellaneous Nursing Order ROUTINE Care 09/01/16 15:47 Active Miscellaneous Nursing Order ROUTINE Care 09/01/16 15:48 Active Miscellaneous Nursing Order ROUTINE Care 09/02/16 12:19 Active SCD's [Sequential Compression Device] Q6H Care 09/01/16 15:45 Active Full Liquid Diet Diet 09/01/16 Dinner Active Regular Diet Diet 09/02/16 Breakfast Active CBC AM.LAB Lab 09/02/16 05:20 Completed Surgical Pathology Routine Lab 09/01/16 14:32 Received Acetaminophen 650 mg [Feverall 650 mg] Med 09/01/16 15:45 Active 650 mg RC Q4H/PRN PRN Bisacodyl 5 mg [Dulcolax 5 mg] Med 09/02/16 12:45 Once 5 mg PO NOW ONE Bupivacaine HCl 0.25% 10 ml [Sensorcaine 0.25% 10 ML Med 09/01/16 12:46 Discontinued ] 10 ml .ROUTE .STK-MED ONE Cefoxitin Sodium 1 gm/50 ml [MEFOXIN 1 Gm/ D5W 50 Ml* Med 09/01/16 18:00 Discontinued *] 50 ml IV Q6HT D5w-0.45 NaCl 1000 ml [Dextrose 5% -0.45 NaCl 1000 ML] Med 09/01/16 15:45 Active 1,000 ml IV 75 mls/hr Enoxaparin Sodium [Enoxaparin Sodium] Med 09/02/16 10:00 Active 40 mg SQ DAILY Famotidine 20 mg Vial [Pepcid 20 MG VIAL] Med 09/01/16 12:00 Discontinued 40 mg IV 1HRPRIOR Hydrocodone/APAP 5/325 [[place] 5/325 mg] Med 09/02/16 06:00 Active 1 tab PO Q4H PRN PRN Hydromorphone 2Mg Inj [Dilaudid 2 mg Injection] Med 09/01/16 15:02 Discontinued 2 mg .ROUTE .STK-MED ONE Hydromorphone 2Mg Inj [Dilaudid 2 mg Injection] Med 09/01/16 22:01 Discontinued 2 mg .ROUTE .STK-MED ONE Hydromorphone 2Mg Inj [Dilaudid 2 mg Injection] Med 09/02/16 02:16 Discontinued 2 mg .ROUTE .STK-MED ONE Hydromorphone 2Mg Inj [Dilaudid 2 mg Injection] Med 09/02/16 10:00 Discontinued 2 mg .ROUTE .STK-MED ONE Morphine Sulfate 2 mg Inj Med 09/01/16 15:43 Active 0 mg IV Q1H PRN PRN Morphine Sulfate 4 mg Inj Med 09/01/16 15:44 Active 0 mg IV Q1H PRN PRN Promethazine HCl 25 mg Amp [Phenergan 25 MG INJ] Med 09/01/16 18:01 Active 25 mg IV Q6H PRN PRN Ringers Solution,Lactated [Lactated Ringers] 1,000 ml Med 09/01/16 12:47 Discontinued IV UD Sodium Citrate 30 ML CUP [Bicitra 30 ml Cup] Med 09/01/16 12:00 Discontinued 30 ml PO 1HRPRIOR Incentive Spirometry Assessmen UD RT 09/01/16 15:44 Active Patient Care Notes (Last 24 hours) 09/02/16 05:00 (created 09/02/16 06:03) Nursing Note by Edison Deluna Pt ambulated in [place] 450 feet accompanied by nurse. Pt tolerated well, returned to bed, call light in reach Initialized on 09/02/16 06:03 - END OF NOTE 09/01/16 19:30 (created 09/02/16 01:14) Nursing Note by Edison Deluna Assisted pt to ambulate to the door of her room and back to bed. Pt c/o increased pain with movement and some dizziness. Pt returned to bed, resting comfortably. Requesting pain meds, given, see emar. Initialized on 09/02/16 01:14 - END OF NOTE 09/01/16 14:30 (created 09/01/16 15:44) Nursing Note by Sade Maher Pt back from surgery. Dressing over lap derek incisions CDI. Pt grimacing from pain. Family at bedside. Pt instructed to take slow deep breathes. Initialized on 09/01/16 15:44 - END OF NOTE Patient underwent laproscopic cholecystectomy, did well. discharge home today. - Vitals & Intake/Output Vital Signs: Vital Signs Temperature 99.2 F 09/02/16 11:00 Pulse Rate 52 L 09/02/16 11:00 Respiratory Rate 18 09/02/16 11:00 Blood Pressure 89/47 09/02/16 11:00 O2 Sat by Pulse Oximetry 99 09/02/16 11:00 Oxygen-Last Documented O2 Percentage 2 Liters = 28% Intake & Output: Intake & Output 08/31/16 09/01/16 09/02/16 09/03/16 11:59 11:59 11:59 11:59 Intake Total 761 1464 Output Total 300 600 Balance 461 864 Weight 97.84 kg 97.84 kg - Lab Result Diagrams: 09/02/16 05:20 09/01/16 05:25 Lab Results-Last 24 Hrs: Lab Results-Last 24 Hours 09/02/16 Range/Units 05:20 WBC 10.3 (4.0-10.5) K/mm3 RBC 4.04 L (4.1-5.4) M/mm3 Hgb 13.1 (12.0-16.0) gm/dl Hct 39.3 (35-47) % MCV 97.3 (78-100) fl MCH 32.4 H (26-32) pg MCHC 33.3 (32-36) g/dl RDW 12.4 (11.5-14.0) % Plt Count 217 (150-450) K/mm3 MPV 10.4 H (6-9.5) fl - Procedures and Test Procedures and Tests throughout Hospitalization: Therapy Orders & Screens 09/01/16 15:44 Incentive Spirometry Assessmen UD Comment: Diagnosis: cholecystitis Discharge Exam General Appearance: no apparent distress, alert Neurologic Exam: alert, oriented x 3, cooperative, normal mood/affect, nml cerebellar function, sensation nml, No motor deficits Skin Exam: normal color, warm, dry Eye Exam: PERRL, EOMI, eyes nml inspection Ears, Nose, Throat Exam: normal ENT inspection, pharynx normal, moist mucous membranes Neck Exam: normal inspection, non-tender, supple, full range of motion Respiratory Exam: normal breath sounds, lungs clear, No respiratory distress Cardiovascular Exam: regular rate/rhythm, normal heart sounds Gastrointestinal/Abdomen Exam: soft, No tenderness, No mass Extremity Exam: normal inspection, normal range of motion Back Exam: normal inspection, normal range of motion, No CVA tenderness, No vertebral tenderness Pelvic Exam: deferred Rectal Exam: deferred Final Diagnosis/Problem List - Final Discharge Diagnosis/Problem (1) Acalculous cholecystitis Current Visit: Yes Status: Resolved (2) Abdominal pain Current Visit: Yes Status: Resolved (3) Ovarian cyst Current Visit: Yes Status: Resolved - Discharge Discharge Date: 09/02/16 Disposition: Home, Self-Care Condition: Stable Prescriptions: No Action Multivitamin [Flintstones] 3 each PO DAILY Cyanocobalamin (Vitamin B-12) [B-12] 15,000 mcg PO DAILY Ferrous Sulfate, Dried [Iron] 65 mg PO DAILY Follow up with: JEFFRY STEPHENSON [ACTIVE STAFF] - 09/12/16 2:10 pm ([facility]) TITO GRIFFITH MD [Primary Care Provider] - Forms: Work/School Release Form
[2016-09-02] MEDS ORDERED: DULCOLAX 5 MG PO ONE (12:45)
== END 2016-09-02 14:20 | disposition home or self-care (01) ==
LOC: ED 17:58 → MED SURG 20:27
PROVIDERS: ADMIT General Practice; ATTEND General Practice
PROC: 0FT44ZZ Resection of Gallbladder, Percutaneous Endoscopic Approach (ICD-10-PCS; principal; 2016-09-01)
PROC: 0WJJ4ZZ Inspection of Pelvic Cavity, Percutaneous Endoscopic Approach (ICD-10-PCS; 2016-09-01)
DX: K80.10 Calculus of gallbladder with chronic cholecystitis without obstruction (principal); N83.209 Unspecified ovarian cyst, unspecified side; Z98.84 Bariatric surgery status; K82.8 Other specified diseases of gallbladder
CPT/HCPCS: 00790; 36000; 36415; 74176; 80048; 80053; 81000; 83605; 83690; 84703; 85025; 85027; 88304; 94760; 96360; 96374; 96375; 99140; 99285; G0378; J0330; J0694; J1100; J1170; J1650; J1885; J2270; J2405; J2550; J2704; J3010

== ENCOUNTER 2020-02-18 16:05 | Emergency (ER) | payer BC, OTHER ==
[2020-02-18 16:27] VITALS: O2SAT 98
[2020-02-18] MEDS ORDERED: Adacel Vial IM ONE ×2 (17:08→17:10)
[2020-02-18 17:09] VITALS: PULSE 68
--- NOTE | 2020-02-18 17:15 | ERPHSYRPT ---
- History of Present Illness Time Seen by Provider: 02/18/20 16:35 Patient Subjective Stated Complaint: PT states "I tripped and fell and hit my face, my right knee, and my left hand really hurts." Triage Nursing Assessment: Pt presented alert and oriented X 3, skin pwd. Pt ambulates with a slight limp. Pt has abrsion noted to right knee, small abrasion to palm of left hand, small laceration to upper lip with scraping of right upper incisor noted. Physician History: Patient is a 44-year-old female who stumbled tripped and fell hitting her mouth her left hand and her right knee during the fall. There was no loss of consciousness her main complaint is pain in the left hand. Occurred: just prior to arrival Reason for Fall: tripped Injuries/Pain Location: face, upper extremity (Left hand), lower (Right knee) Loss of Consciousness: no loss of consciousness Quality: throbbing Severity of Pain-Max: moderate Severity of Pain-Current: moderate Modifying Factors: Improves With: nothing Associated Symptoms (Fall): extremity injury Allergies/Adverse Reactions: No Known Drug Allergies Allergy (Verified 08/31/16 18:13) Hx Tetanus, Diphtheria Vaccination/Date Given: No Hx Influenza Vaccination/Date Given: Yes Hx Pneumococcal Vaccination/Date Given: No Immunizations Up to Date: Yes Travel Risk - International Travel Have you traveled outside of the country in past 3 weeks: No - Coronavirus Screening Close contact with a COVID-19 positive Pt in past 14-21 Days: No - Review of Systems Constitutional: No Fever, No Chills Eyes: No Symptoms Ears, Nose, & Throat: No Symptoms Respiratory: No Cough, No Dyspnea Cardiac: No Chest Pain, No Edema, No Syncope Abdominal/Gastrointestinal: No Abdominal Pain, No Nausea, No Vomiting, No Diarrhea Genitourinary Symptoms: No Dysuria Musculoskeletal: Joint Pain, No Back Pain, No Neck Pain Skin: Other (Abrasions), No Rash Neurological: No Dizziness, No Focal Weakness, No Sensory Changes Psychological: No Symptoms Endocrine: No Symptoms All Other Systems: Reviewed and Negative - Past Medical History Pertinent Past Medical History: No Neurological History: No Pertinent History ENT History: No Pertinent History Cardiac History: Other Respiratory History: No Pertinent History Endocrine Medical History: Other Musculoskeletal History: No Pertinent History GI Medical History: Other History: No Pertinent History Psycho-Social History: No Pertinent History Female Reproductive Disorders: No Pertinent History Other Medical History: prior to bariatric surgery pt was diabetic type II. no longer deals with any diabetic signs or symptoms. HX: mitral valve prolapse, bariatric surgery - Past Surgical History Past Surgical History: Yes Neuro Surgical History: No Pertinent History Cardiac: Cardiac Catheterization, Other Respiratory: No Pertinent History Gastrointestinal: Other Genitourinary: No Pertinent History Musculoskeletal: No Pertinent History Female Surgical History: Other Other Surgical History: derek - Social History Smoking Status: Never smoker Exposure to second hand smoke: No Drug Use: none Patient Lives Alone: No - Female History Hx Last Menstrual Period: 02/07/2020 Hx Now: No - Nursing Vital Signs Nursing Vital Signs: Initial Vital Signs Temperature 99.2 F 02/18/20 16:17 Pulse Rate 62 02/18/20 16:17 Respiratory Rate 20 02/18/20 16:17 Blood Pressure 122/65 02/18/20 16:17 O2 Sat by Pulse Oximetry 98 02/18/20 16:17 Pain Scale Pain Intensity 4 - Beatrice Coma Score Best Eye Response (Harold): (4) open spontaneously Best Verbal Response (Harold): (5) oriented Best Motor Response (Beatrice): (6) obeys commands Beatrice Total: 15 - Physical Exam General Appearance: mild distress, alert Head Injury: contusions (There is an abrasion of the right upper lip) Eye Exam: PERRL/EOMI ENT Exam: airway nml Neck Exam: normal inspection, No tenderness Respiratory/Chest Exam: normal breath sounds, No chest tenderness, No respiratory distress Cardiovascular Exam: normal heart sounds, regular rate/rhythm Gastrointestinal Exam: soft, No tenderness, No distention, No guarding, No ecchymosis Back Exam: normal inspection, No vertebral tenderness Extremity Exam: normal range of motion, pelvis stable, bony point tenderness, evidence of injury, other (Erosions over the base of the thenar eminence and the right knee.), No deformities Peripheral Pulses: dorsalis-pedis (R): 2+, dorsalis-pedis (L): 2+ Neurologic Exam: alert, oriented x 3, cooperative, sensation nml, No motor deficits Skin Exam: normal color, warm, dry SpO2 Interpretation: normal SpO2: 98 O2 Delivery: Room Air - Course Nursing assessment & vital signs reviewed: Yes - Radiology Exams Knee X-ray Interpretation: Interpreted by me, Other (X-rays of the right knee and left hand show no fracture or dislocation) Ordered Tests: Active Orders 24 hr Category Date Time Status HAND (MINIMUM 3 VIEWS) Stat Exams 02/18/20 16:47 Taken KNEE (3 VIEWS) Stat Exams 02/18/20 16:47 Taken Medication Summary Discontinued Medications Generic Name Dose Route Start Last Admin Trade Name Freq PRN Reason Stop Dose Admin Diphtheria/Tetanus/Acell Pertussis 0.5 ml 02/18/20 17:08 Adacel Vial IM 02/18/20 17:09 .ONCE ONE - Progress Progress: unchanged - Departure Departure Disposition: Home Clinical Impression: Abrasions of multiple sites, Multiple contusions Condition: Stable Critical Care Time: No Referrals: TITO GRIFFITH MD [Primary Care Provider] - Instructions: Contusion (DC) Prescriptions: Hydrocodone/APAP 5-325 Tab^^^ [[place] 5-325 Tablet^^^] 1 tab PO Q6HPRN PRN #10 tablet MDD 6 PRN Reason: Pain
[2020-02-18 17:37] VITALS: BP 112/71
--- NOTE | 2020-02-18 22:21 | XRAY ---
Indication: Pain following fall. Comparison: None 3 view left hand obtained. No bony, articular, or soft tissue abnormalities.
--- NOTE | 2020-02-18 22:24 | XRAY ---
Indication: Pain following fall. Comparison: None 3 view right knee demonstrates mild lateral knee compartment spurring and tiny suprapatella spurring. No other bony, articular, or soft tissue abnormalities.
== END 2020-02-18 17:37 | disposition home or self-care (01) ==
LOC: ED 16:05
DX: S80.211A Abrasion, right knee, initial encounter (principal); S60.512A Abrasion of left hand, initial encounter; S01.511A Laceration without foreign body of lip, initial encounter; M79.642 Pain in left hand; W01.0XXA Fall on same level from slipping, tripping and stumbling without subsequent striking against object, initial encounter; Y92.9 Unspecified place or not applicable; T14.8XXA Other injury of unspecified body region, initial encounter; X58.XXXA Exposure to other specified factors, initial encounter; Y93.89 Activity, other specified; Y92.89 Other specified places as the place of occurrence of the external cause
CPT/HCPCS: 73130; 73562; 90471; 90715; 99284